=== PATIENT | female | born 1935 | race Caucasian/White ===

== ENCOUNTER 2025-07-14 16:47 | Outpatient (CLI) | payer MEDICARE ==
--- NOTE | 2025-07-14 19:40 | RADIOLOGY REPORT ---
EXAM: DI CHEST,SINGLE VIEW HISTORY: TB SCREENING FOR PLACEMENT TECHNIQUE: 1 view of the chest COMPARISON: None FINDINGS/IMPRESSION: LUNGS: No pleural effusion, consolidation, or pneumothorax . No radiographically apparent sequelae of pulmonary tuberculosis. MEDIASTINUM: Unremarkable BONES: No acute osseous abnormality OTHER: None
== END 2025-07-14 23:59 | disposition home or self-care (01) ==
LOC: RAD 16:47
PROVIDERS: ATTEND Internal Medicine
DX: Z11.1 Encounter for screening for respiratory tuberculosis (principal)
CPT/HCPCS: 71045